=== PATIENT | female | born 1970 | race Caucasian/White ===

== ENCOUNTER 2023-01-14 17:36 | Emergency (ER) | payer OTHER ==
[2023-01-14] MEDS ORDERED: ORPHENADRINE 30 MG/ML 2 ML VIAL IM STA (19:05)
[2023-01-14] MEDS ORDERED: DEXAMETHASONE SOD PHOSPHATE 10 MG/ML 1 ML VIAL IM STA (19:05)
[2023-01-14] MEDS ORDERED: KETOROLAC 15 MG/ML 1 ML VIAL IM STA (19:05)
[2023-01-14] MEDS ORDERED: LIDOCAINE 5% PATCH TOPICAL SCH (19:15)
--- NOTE | 2023-01-14 20:15 | ED ---
Back Pain HPI - General Chief Complaint: Back Pain/Injury Stated Complaint: lower back pain Time Seen by Provider: 01/14/23 18:59 Source: patient - History of Present Illness Initial Comments: 52-year-old female presenting with chief complaint of low back pain. Pain radiates into the left leg. No loss of bowel or bladder control or saddle paresthesia. No new injury. Patient has had lower back pain in the past. No dysuria or hematuria. No fevers or chills. No numbness or tingling. - Related Data Allergies Allergy/AdvReac Type Severity Reaction Status Date / Time No Known Allergies Allergy Verified 01/14/23 18:01 Review of Systems ROS Statement: Those systems with pertinent positive or pertinent negative responses have been documented in the HPI. ROS Other: All systems not noted in ROS Statement are negative. Past Medical History Past Medical History: No Reported History Past Surgical History: No Surgical Hx Reported Smoking Status: Never smoker Past Alcohol Use History: None Reported Past Drug Use History: None Reported General Exam Limitations: no limitations General appearance: alert, in no apparent distress Head exam: Present: atraumatic, normocephalic, normal inspection Eye exam: Present: normal appearance Neck exam: Present: normal inspection, full ROM Back exam: Present: normal inspection, paraspinal tenderness Neurological exam: Present: alert, oriented X3, CN II-XII intact Psychiatric exam: Present: normal affect, normal mood Skin exam: Present: warm, dry, intact, normal color. Absent: rash Course Vital Signs 01/14/23 01/14/23 17:56 20:39 Temperature 99.2 F 98.3 F Pulse Rate 83 78 Respiratory 20 18 Rate Blood Pressure 156/77 134/76 O2 Sat by Pulse 98 97 Oximetry Medical Decision Making - Medical Decision Making Was pt. sent in by a medical professional or institution (, PA, MVA OPERATOR, urgent care, hospital, or senior care...) When possible be specific @ -No Did you speak to anyone other than the patient for history (EMS, parent, family, police, friend...)? What history was obtained from this source @ -No Did you review nursing and triage notes (agree or disagree)? Why? @ -I reviewed and agree with nursing and triage notes Were old charts reviewed (outside hosp., previous admission, EMS record, old EKG, old radiological studies, urgent care reports/EKG's, senior care records)? Report findings @ -No old charts were reviewed Differential Diagnosis (chest pain, altered mental status, abdominal pain women, abdominal pain men, vaginal bleeding, weakness, fever, dyspnea, syncope, headache, dizziness, GI bleed, back pain, seizure, CVA, palpatations, mental health, musculoskeletal)? @ - [facility] Differential Back Pain: Strain, zoster, cauda equina syndrome, epidural abscess, vertebral osteomyelitis, discitis, fracture, subluxation, disc herniation, DJD, spinal stenosis, dissection, AAA, pancreatitis, peptic ulcer disease, pyelonephritis, kidney stone this is not meant to be an all-inclusive list. EKG interpreted by me (3pts min.). @ -As above X-rays interpreted by me (1pt min.). @ -None done CT interpreted by me (1pt min.). @ -None done U/S interpreted by me (1pt. min.). @ -None done What testing was considered but not performed or refused? (CT, X-rays, U/S, labs)? Why? @ -None What meds were considered but not given or refused? Why? @ -None Did you discuss the management of the patient with other professionals (professionals i.e. , PA, MVA OPERATOR, lab, RT, psych nurse, addiction social worker, engineering inspection assistant, teacher, hotel security officer, case management assistant)? Give summary @ -No Was smoking cessation discussed for >3mins.? @ -No Was critical care preformed (if so, how long)? @ -No Were there social determinants of health that impacted care today? How? (Homelessness, low income, unemployed, alcoholism, drug addiction, transportation, low edu. Level, literacy, decrease access to med. care, senior living, rehab)? @ -No Was there de-escalation of care discussed even if they declined (Discuss DNR or withdrawal of care, Hospice)? DNR status @ -No What co-morbidities impacted this encounter? (DM, HTN, Smoking, COPD, CAD, Cancer, CVA, ARF, Chemo, Hep., AIDS, mental health diagnosis, sleep apnea, morbid obesity)? @ -None Was patient admitted / discharged? Hospital course, mention meds given and route, prescriptions, significant lab abnormalities, going to OR and other pertinent info. @ -52-year-old female presenting with chief complaint of lower back pain with radiation down the left leg. No red flag symptoms. Patient reports improvement after Toradol, Decadron, Norflex, and lidocaine patch. She is educated on supportive management at home. Follow-up with PCP. Report back to ER with any new or worsening symptoms. Discussed return parameters and answered all questions. Patient conveyed verbal understanding and agreed to the plan. I discussed this case in detail with my attending Dr. Pulliam Undiagnosed new problem with uncertain prognosis? @ -No Drug Therapy requiring intensive monitoring for toxicity (Heparin, Nitro, Insulin, Cardizem)? @ -No Were any procedures done? @ -No Diagnosis/symptom? @ -Mechanical back pain Acute, or Chronic, or Acute on Chronic? @ -Acute Uncomplicated (without systemic symptoms) or Complicated (systemic symptoms)? @ -Uncomplicated Side effects of treatment? @ -No Exacerbation, Progression, or Severe Exacerbation? @ -No Poses a threat to life or bodily function? How? (Chest pain, [place], [place], pneumonia, PE, COPD, DKA, ARF, appy, cholecystitis, CVA, Diverticulitis, Homicidal, Suicidal, threat to staff... and all critical care pts) @ -No Disposition Clinical Impression: Mechanical back pain Disposition: HOME SELF-CARE Condition: Good Instructions (If sedation given, give patient instructions): Acute Low Back Pain (ED) Additional Instructions: Follow-up with PCP. Report back to ER with any new or worsening symptoms. Take Motrin and Tylenol as needed for pain control. Use heat and ice as needed. You may get [id number] lidocaine patches. Is patient prescribed a controlled substance at d/c from ED?: No Referrals: None,Stated [Primary Care Provider] - 1-2 days [facility] [[facility]FF] - 1-2 days Moi Ospina MD [REFERRING] - 1-2 days Pat Herron MD [STAFF PHYSICIAN] - 1-2 days Time of Disposition: 20:14
[2023-01-14 20:41] VITALS: BP 134/76; PULSE 78; RESP 18; TEMP 98.3
== END 2023-01-14 20:39 | disposition home or self-care (01) ==
LOC: EC 17:36
DX: M54.50 Low back pain, unspecified (principal)
CPT/HCPCS: 99283; 96372; J1100; J2360; J1885

== ENCOUNTER 2023-01-15 11:53 | Emergency (ER) | payer OTHER ==
[2023-01-15 12:22] VITALS: PULSE 78; TEMP 98.4
[2023-01-15] MEDS ORDERED: KETOROLAC 15 MG/ML 1 ML VIAL IM STA (12:55)
--- NOTE | 2023-01-15 13:16 | ED ---
General Adult HPI - General Chief complaint: Extremity Problem,Nontraumatic Stated complaint: Left hip and back pain Time Seen by Provider: 01/15/23 12:37 Source: patient, RN notes reviewed, old records reviewed Mode of arrival: wheelchair Limitations: physical limitation - History of Present Illness Initial comments: 52-year-old female presents to the emergency room with complaints of pain in her left leg radiating down to her foot. She denies any trauma. Was seen in the emergency room yesterday for the same and states was given 3 injections. Today pain has returned. She states was not given any prescriptions. Does not have a primary care doctor. She does state that she has a history of scoliosis and one leg is shorter than the other. Denies any other medical history. No medications on a daily basis. -: days(s) Location: buttocks (left) Radiation: distal (LLE to foot) Severity scale (1-10): 10 Quality: burning, constant Consistency: constant Improves with: none Worsens with: other (palpation/ sitting) - Related Data Previous Rx's Medication Instructions Recorded Lidocaine 5% Patch [Lidoderm] 1 patch TOPICAL DAILY 14 Days #14 01/15/23 patch predniSONE [Deltasone] 20 mg PO BID 5 Days #10 tab 01/15/23 Allergies Allergy/AdvReac Type Severity Reaction Status Date / Time No Known Allergies Allergy Verified 01/15/23 12:22 Review of Systems ROS Statement: Those systems with pertinent positive or pertinent negative responses have been documented in the HPI. ROS Other: All systems not noted in ROS Statement are negative. Past Medical History Past Medical History: No Reported History Past Surgical History: No Surgical Hx Reported Smoking Status: Never smoker Past Alcohol Use History: None Reported Past Drug Use History: None Reported General Exam Limitations: no limitations, physical limitation General appearance: alert, in no apparent distress Head exam: Present: atraumatic Eye exam: Present: normal appearance. Absent: scleral icterus, conjunctival injection, periorbital swelling Neck exam: Present: full ROM. Absent: tenderness, meningismus Respiratory exam: Absent: respiratory distress, accessory muscle use Cardiovascular Exam: Present: regular rate GI/Abdominal exam: Present: soft Extremities exam: Present: full ROM, normal capillary refill. Absent: calf tenderness Back exam: Present: other (Pain with palpation deep left gluteal). Absent: CVA tenderness (R), CVA tenderness (L), vertebral tenderness Expanded Back exam: Absent: saddle anesthesia Back exam: Sciatic Notch Tenderness: Left Neurological exam: Present: alert, oriented X3 Psychiatric exam: Present: normal affect, normal mood Skin exam: Present: warm, dry, normal color. Absent: cyanosis, diaphoretic, petechiae, pallor Course Vital Signs 01/15/23 01/15/23 12:20 13:57 Temperature 98.4 F Pulse Rate 78 78 Respiratory 20 18 Rate Blood Pressure 116/66 134/78 O2 Sat by Pulse 98 99 Oximetry Medical Decision Making - Medical Decision Making Was pt. sent in by a medical professional or institution (, PA, CD MIXER, urgent care, hospital, or snf...) When possible be specific @ -No Did you speak to anyone other than the patient for history (EMS, parent, family, police, friend...)? What history was obtained from this source @ -No Did you review nursing and triage notes (agree or disagree)? Why? @ -I reviewed and agree with nursing and triage notes Were old charts reviewed (outside hosp., previous admission, EMS record, old EKG, old radiological studies, urgent care reports/EKG's, snf records)? Report findings @ -ER visit from yesterday Differential Diagnosis (chest pain, altered mental status, abdominal pain women, abdominal pain men, vaginal bleeding, weakness, fever, dyspnea, syncope, headache, dizziness, GI bleed, back pain, seizure, CVA, palpatations, mental health, musculoskeletal)? @ -Differential Back Pain: Strain, zoster, cauda equina syndrome, epidural abscess, vertebral osteomyelitis, discitis, fracture, subluxation, disc herniation, DJD, spinal stenosis, dissection, AAA, pancreatitis, peptic ulcer disease, pyelonephritis, kidney stone, this is not meant to be an all-inclusive list. EKG interpreted by me (3pts min.). @ -n/a X-rays interpreted by me (1pt min.). @ -yes X-ray lumbar spine interpreted by me shows mild scoliosis. No evidence of fracture or dislocation. CT interpreted by me (1pt min.). @ -None done U/S interpreted by me (1pt. min.). @ -None done What testing was considered but not performed or refused? (CT, X-rays, U/S, labs)? Why? @ -None What meds were considered but not given or refused? Why? @ -None Did you discuss the management of the patient with other professionals (professionals i.e. , NEHEMIAS, CD MIXER, lab, RT, psych nurse, social service coordinator, fiscal services manager, teacher, [employer] revenue officer, piano case and bench assembler)? Give summary @ -No Was smoking cessation discussed for >3mins.? @ -No Was critical care preformed (if so, how long)? @ -No Were there social determinants of health that impacted care today? How? (Homelessness, low income, unemployed, alcoholism, drug addiction, transportation, low edu. Level, literacy, decrease access to med. care, detention, rehab)? @ -Patient does not have a primary care doctor Was there de-escalation of care discussed even if they declined (Discuss DNR or withdrawal of care, Hospice)? DNR status @ -No What co-morbidities impacted this encounter? (DM, HTN, Smoking, COPD, CAD, Cancer, CVA, ARF, Chemo, Hep., AIDS, mental health diagnosis, sleep apnea, morbid obesity)? @ -Obesity Was patient admitted / discharged? Hospital course, mention meds given and route, prescriptions, significant lab abnormalities, going to OR and other pertinent info. @ -Discharged 52-year-old female presents to the emergency room with complaints of pain in her left leg radiating down to her foot. She denies any trauma. Was seen in the emergency room yesterday for the same and states was given 3 injections. Today pain has returned. She states was not given any prescriptions. Does not have a primary care doctor. She does state that she has a history of scoliosis and one leg is shorter than the other. Denies any other medical history. No medications on a daily basis. Patient was seen yesterday for same pain to left buttock and down her left leg to her foot. At discharge reported improvement of Toradol Decadron Norflex and Lidoderm patch. She states this medication has worn off and she continues to have the pain. Due to her scoliosis x-ray lumbar spine was ordered. X-ray lumbar spine interpreted by me shows mild scoliosis. No evidence of fracture or dislocation. Radiologist interpretation no acute fracture dislocation seen in the lumbar spine. Mild multilevel degenerative disc disease. 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 She was given Lidoderm patch and Toradol injection. Patient has no concerning red flags symptoms. No bowel or bladder incontinence. No history of cancers. No trauma. No fevers. Is able to ambulate. Discharged home with prescription for Lidoderm patches and prednisone. Directed to follow with the primary care doctor. I discussed at length that this pain may take several weeks to resolve. She is agreeable to discharge. Case discussed with Dr. Gutierrez. Undiagnosed new problem with uncertain prognosis? @ -No Drug Therapy requiring intensive monitoring for toxicity (Heparin, Nitro, Insulin, Cardizem)? @ -No Were any procedures done? @ -No Diagnosis/symptom? @ -Back pain Acute, or Chronic, or Acute on Chronic? @ -Acute Uncomplicated (without systemic symptoms) or Complicated (systemic symptoms)? @ -Uncomplicated Side effects of treatment? @ -No Exacerbation, Progression, or Severe Exacerbation? @ -No Poses a threat to life or bodily function? How? (Chest pain, [place], [place], pneumonia, PE, COPD, DKA, ARF, appy, cholecystitis, CVA, Diverticulitis, Homicidal, Suicidal, threat to staff... and all critical care pts) @ -No Disposition Clinical Impression: Back pain Disposition: HOME SELF-CARE Condition: Good Instructions (If sedation given, give patient instructions): Acute Low Back Pain (ED), Lower Back Exercises (ED) Additional Instructions: Use Lidoderm patches as prescribed. If you do not obtain these use [id number] topical pain relievers like icy hot, BenGay or capsaicin creams. Take prednisone as prescribed for the next 5 days. Do not take ibuprofen products when taking steroids as it will upset your stomach. You can take Tylenol or acetaminophen products. Follow-up with the primary care doctor. Return to the emergency room with any new or concerning symptoms of any fevers, inability to ambulate or bowel or bladder incontinence. Prescriptions: predniSONE [Deltasone] 20 mg PO BID 5 Days #10 tab Lidocaine 5% Patch [Lidoderm] 1 patch TOPICAL DAILY 14 Days #14 patch Is patient prescribed a controlled substance at d/c from ED?: No Referrals: None,Stated [Primary Care Provider] - 1-2 days Forms: Area PCPs Time of Disposition: 13:36
--- NOTE | 2023-01-15 13:18 | XR ---
EXAMINATION TYPE: XR lumbar spine 2 or 3V DATE OF EXAM: 01/15/2023 CLINICAL HISTORY: Left buttock pain TECHNIQUE: Three views of the lumbar spine are submitted. COMPARISON: None. FINDINGS: There are 5 lumbar type vertebral bodies identified. No acute fracture. Mild levo scoliotic curvature of the lumbar spine with apex at L3. Vertebral body heights are within normal limits. Multilevel d isc space narrowing with endplate sclerosis and anterior osteophytosis. Visualized sacrum/coccyx appe ars unremarkable. The overlying soft tissue appears unremarkable. IMPRESSION: 1. No acute fracture or dislocation is seen in the lumbar spine. 2. Mild multilevel degenerative disc disease. 3. 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
[2023-01-15] MEDS ORDERED: LIDOCAINE 5% PATCH TOPICAL STA (13:26)
[2023-01-15 13:58] VITALS: BP 134/78; RESP 18
== END 2023-01-15 13:58 | disposition home or self-care (01) ==
LOC: EC 11:53
DX: M41.9 Scoliosis, unspecified (principal); M51.36 Other intervertebral disc degeneration, lumbar region; E66.9 Obesity, unspecified; Z68.34 Body mass index [BMI] 34.0-34.9, adult
CPT/HCPCS: 72100; 99284; 96372; J1885